=== PATIENT | male | born 1985 | race Caucasian/White ===

== ENCOUNTER 2017-06-29 05:26 | Inpatient (IN) | payer MEDICAID ==
[~2017-06-29] VITALS: Ht 175.3 cm; Wt 134.7 kg
[2017-06-29] MEDS ORDERED: SODIUM CHLORIDE 0.9% 1,000 ML IV ONE (05:38)
[2017-06-29] MEDS ORDERED: ESOM20CA PO (05:39)
[2017-06-29] MEDS ORDERED: MAALOX/HYOSCYAMINE/LIDOCAINE 45 ML BTL ONE (05:49)
[2017-06-29] MEDS ORDERED: ASPIRIN 81 MG TABLET CHEW ONE (05:49)
[2017-06-29] MEDS ORDERED: FAMOTIDINE 20 MG/2 ML ONE (05:50)
[2017-06-29] MEDS ORDERED: ONDANSETRON 2MG/ML, 2ML ONE (05:50)
[2017-06-29] MEDS ORDERED: PLEASE ENTER ALLERGIES MC SCH ×2 (06:00)
[2017-06-29] MEDS ORDERED: ASPIRIN 81 MG TABLET CHEW PO ONE (06:00)
[2017-06-29] MEDS ORDERED: MAALOX/HYOSCYAMINE/LIDOCAINE 45 ML BTL PO ONE (06:00)
[2017-06-29] MEDS ORDERED: ONDANSETRON 2MG/ML, 2ML IVPush ONE (06:00)
[2017-06-29] MEDS ORDERED: FAMOTIDINE 20 MG/2 ML IVP ONE (06:00)
[2017-06-29 06:19] LABS: BLOOD UREA NITROGEN 14 mg/dL (7-18)
[2017-06-29 06:27] LABS: ASPARTATE AMINO TRANSFERASE 28 U/L (15-37)
[2017-06-29 06:29] LABS: IS PT STATUS REG ER OR PRE ER? YES
[2017-06-29] MEDS ORDERED: MORPHINE SULFATE 4 MG/ML, 1ML IV PRN (11:00)
[2017-06-29 12:37] VITALS: BP 124/73
[2017-06-29] MEDS: POTASSIUM CHLORIDE 10 MEQ in SODIUM CHLORIDE 0.9% 1,000 ML IV SCH (13:51)
[2017-06-29] MEDS: ENOXAPARIN 40 MG/0.4 ML SQ SCH (13:55)
[2017-06-29] MEDS: NITROGLYCERIN 0.4 MG/SPRAY SL PRN ×2 (13:55→14:08)
[2017-06-29] MEDS: NICOTINE 7 MG/24 HR PATCH.TD24 TD SCH (13:55)
[2017-06-29 14:02] VITALS: BP 113/65
[2017-06-29 14:07] VITALS: BP 135/78
[2017-06-29 14:29] LABS: IS PT STATUS REG ER OR PRE ER? NO
[2017-06-29 19:36] LABS: IS PT STATUS REG ER OR PRE ER? NO
[2017-06-29 20:31] VITALS: BP 125/76
[2017-06-29] MEDS: SODIUM CHLORIDE FLUSH 10ML SYR IVF SCH (20:44)
[2017-06-29 21:47] VITALS: BP_SYST 135; BP_SYST 142; BP_DIAS 82; BP_DIAS 87; BP_DIAS 93
[2017-06-29] MEDS: MAALOX/HYOSCYAMINE/LIDOCAINE 45 ML BTL PO PRN (21:51)
[2017-06-30 02:14] VITALS: BP 111/71
[2017-06-30] MEDS: POTASSIUM CHLORIDE 10 MEQ in SODIUM CHLORIDE 0.9% 1,000 ML IV SCH (02:19)
[2017-06-30 05:26] LABS: BLOOD UREA NITROGEN 12 mg/dL (7-18)
[2017-06-30] MEDS ORDERED: ASPIRIN 325 MG TABLET EC PO SCH (06:00)
[2017-06-30] MEDS ORDERED: REGADENOSON 0.4 MG/5 ML SYRINGE ONE (09:21)
[2017-06-30] MEDS: ENOXAPARIN 40 MG/0.4 ML SQ SCH (11:24)
[2017-06-30] MEDS: NICOTINE 7 MG/24 HR PATCH.TD24 TD SCH (11:24)
[2017-06-30] MEDS: SODIUM CHLORIDE FLUSH 10ML SYR IVF SCH (11:24)
[2017-06-30] MEDS: MAALOX/HYOSCYAMINE/LIDOCAINE 45 ML BTL PO PRN (12:15)
[2017-06-30 13:11] VITALS: BP 136/95
== END 2017-06-30 14:14 | disposition home or self-care (01) | DRG 313 ==
LOC: ED 06:25 → EDIP 08:44 → 5SO 12:31
PROVIDERS: ADMIT Internal Medicine; ATTEND Internal Medicine
DX: R07.89 Other chest pain (principal); K21.9 Gastro-esophageal reflux disease without esophagitis; G47.33 Obstructive sleep apnea (adult) (pediatric); F17.210 Nicotine dependence, cigarettes, uncomplicated; R55 Syncope and collapse; Z91.19 Patient's noncompliance with other medical treatment and regimen; Z90.49 Acquired absence of other specified parts of digestive tract; Z83.3 Family history of diabetes mellitus; Z82.49 Family history of ischemic heart disease and other diseases of the circulatory system; Z88.0 Allergy status to penicillin; Z86.19 Personal history of other infectious and parasitic diseases
CPT/HCPCS: 36415; 71010; 78452; 80048; 80053; 80061; 83690; 83880; 84436; 84439; 84443; 84484; 85025; 85027; 85610; 87324; 93005; 93017; 93306; 96374; 96375; J1650; J2405; J2785; J3480; A9502; C9898; J7030; S0028

== ENCOUNTER 2017-07-09 22:16 | Emergency (ER) | payer MEDICAID ==
[~2017-07-09] VITALS: Ht 175.3 cm; Wt 129.9 kg
[2017-07-09 22:16] VITALS: BP 129/83
[~2017-07-09 22:16] MED LIST: ESOM20CA PO
== END 2017-07-09 23:30 | disposition home or self-care (01) ==
LOC: ED 23:20
DX: K21.0 Gastro-esophageal reflux disease with esophagitis (principal); Z88.0 Allergy status to penicillin
CPT/HCPCS: 99283

== ENCOUNTER 2019-07-12 17:49 | Emergency (ER) | payer MEDICAID ==
[~2019-07-12] VITALS: Ht 175.3 cm; Wt 132.6 kg
[2019-07-12 19:50] VITALS: BP 138/74
== END 2019-07-12 19:52 | disposition home or self-care (01) ==
LOC: ED 18:45
DX: R07.89 Other chest pain (principal); K21.9 Gastro-esophageal reflux disease without esophagitis; F41.1 Generalized anxiety disorder; F17.200 Nicotine dependence, unspecified, uncomplicated
CPT/HCPCS: 36415; 71045; 80048; 82040; 84484; 85025; 93005; 99284

== ENCOUNTER 2021-05-09 00:14 | Emergency (ER) | payer SELFPAY ==
[~2021-05-09] VITALS: Ht 175.3 cm; Wt 126.0 kg
[2021-05-09 00:18] VITALS: BP 195/111
[2021-05-09] MEDS ORDERED: DIAZEPAM 5 MG TABLET ONE (01:47)
[2021-05-09] MEDS ORDERED: HYDROcodone/APAP 5/325 TABLET ONE (01:48)
[2021-05-09] MEDS ORDERED: HYDROcodone/APAP 5/325 TABLET PO ONE (02:00)
[2021-05-09] MEDS ORDERED: KETOROLAC 30 MG/1 ML IM ONE (02:00)
[2021-05-09] MEDS ORDERED: DIAZEPAM 5 MG TABLET PO ONE (02:00)
--- NOTE | 2021-05-09 02:07 | NUR ---
Pt medicated for pain, laying on right lateral side for comfort.
== END 2021-05-09 03:00 | disposition home or self-care (01) ==
LOC: ED 01:11
DX: S39.012A Strain of muscle, fascia and tendon of lower back, initial encounter (principal); S29.012A Strain of muscle and tendon of back wall of thorax, initial encounter; S16.1XXA Strain of muscle, fascia and tendon at neck level, initial encounter; R00.0 Tachycardia, unspecified; K21.9 Gastro-esophageal reflux disease without esophagitis; F17.210 Nicotine dependence, cigarettes, uncomplicated; Z72.9 Problem related to lifestyle, unspecified; Z87.11 Personal history of peptic ulcer disease; V49.49XA Driver injured in collision with other motor vehicles in traffic accident, initial encounter; Y93.89 Activity, other specified; Y92.410 Unspecified street and highway as the place of occurrence of the external cause; Y99.8 Other external cause status
CPT/HCPCS: 99283